=== PATIENT | female | born 1985 | race Caucasian/White ===

== ENCOUNTER 2022-03-29 21:58 | Emergency (ER) | payer BC, OTHER ==
[~2022-03-29 21:58] MED LIST: Iopamidol 370 76% 100 ML VIAL ONE
[2022-03-29] MEDS ORDERED: Sodium Chloride 0.9% 100 ML ONE (22:22)
[2022-03-29] MEDS ORDERED: cefTRIAXone\\ROCEPHIN 2 GM VIAL ONE (22:22)
[2022-03-29 22:29] LABS: Prothrombin Time 13.9 sec (12.0-14.7)
[2022-03-29 22:30] LABS: PTT 41.1 sec (22.9-36.1)
[2022-03-29 22:38] LABS: ALT (SGPT) 59 U/L (8-55); AST (SGOT) 23 U/L (5-34); Albumin 4.6 g/dL (3.5-5.0); Alkaline Phosphatase 111 U/L (40-110); Anion Gap 17 mmol/L (10-20); BUN (Urea Nitrogen) 10 mg/dL (7.0-18.7); Bilirubin, Total 1.1 mg/dL (0.2-1.2); Calc. Creatinine Clearance 0 mL/min (70-130); Calcium 10.3 mg/dL (7.8-10.44); Carbon Dioxide 20 mmol/L (22-29); Chloride 99 mmol/L (98-107); Estimated GFR 95; Globulin 4.4 g/dL (2.4-3.5); Glucose 107 mg/dL (70-105); Potassium 3.5 mmol/L (3.5-5.1); Sodium 132 mmol/L (136-145)
[2022-03-29] MEDS ORDERED: Dexamethasone 4 MG TAB ONE (22:39)
[2022-03-29 22:41] LABS: Eosinophils 2 % (0-10); Hemoglobin 18.7 g/dL (12.0-16.0); Lymphocytes 9 % (21-51); MDiff Complete? YES; Mean Corpuscular HGB CONC 33.5 g/dL (32.0-36.0); Mean Corpuscular Hemoglobin 31.3 pg (27.0-31.0); Mean Corpuscular Volume 93.5 fl (78.0-98.0); Mean Platelet Volume 12.9 fL (7.4-10.4); Monocytes 5 % (0-10); Neutrophil 84 % (42-75); Platelet Count 283 10x3/uL (130-400); RBC Distribution Width 11.9 % (11.5-14.5); Red Blood Cell (RBC) Count 5.98 mill/uL (4.20-5.40); White Blood Cell (WBC) Count 27.9 10x3/uL (4.8-10.8)
[2022-03-29 22:44] LABS: Bacteria/HPF None Seen HPF (None Seen); Bilirubin Moderate (Negative); Blood, Urine Negative (Negative); Clarity Slightly Cloudy (Clear); Glucose, Urine (Dipstick) Negative (Negative); Ketone, Urine 80 mg/dL (Negative); Leukocyte Negative (Negative); Mucous/LPF 2+ LPF (<2+); Nitrite Negative (Negative); Protein, Urine (Dipstick) 30 mg/dL (Neg-Trace); RBC/HPF 0-3 HPF (0-3); Specific Gravity, Urine 1.025 (1.005-1.030); Squamous Epithelial 21-50 HPF (0-3); WBC/HPF 0-3 HPF (0-3)
[2022-03-29] MEDS ORDERED: Sodium Chloride 0.9% 1,000 ML ONE (22:51)
[2022-03-29] MEDS ORDERED: metroNIDAZOLE 500 MG/100 ML BAG ONE (23:38)
[2022-03-30 00:09] LABS: SARS-CoV-2 NAA Rapid Test Not Detected (NotDetected)
[2022-03-30] MEDS ORDERED: Dextrose 5 % And 0.9 % NaCl 1,000 ML ONE (01:03)
[2022-03-30 11:07] LABS: MONO NEGATIVE CONTROL ZONE White (Negative) (White); MONO POSITIVE CONTROL Pink Line (Positive) (PINK/RED); Mononucleosis NEGATIVE (NEGATIVE)
== END 2022-03-30 02:27 | disposition short-term general hospital (02) ==
LOC: NAV ERS 21:58
DX: J39.0 Retropharyngeal and parapharyngeal abscess (principal); F17.210 Nicotine dependence, cigarettes, uncomplicated; Z20.822 Contact with and (suspected) exposure to COVID-19
CPT/HCPCS: 70492; 71045; 80053; 81003; 81015; 83605; 85025; 85610; 85730; 86308; 87040; 87086; 87804; 94760; 96365; 96375; J0696; J3490; J7042; J7050; J8540; Q9967; U0002